=== PATIENT | male | born 1950 | race Caucasian/White ===

== ENCOUNTER 2025-05-01 10:46 | Emergency (ER) | payer MEDICAID, MEDICARE, OTHER ==
[~2025-05-01] VITALS: Ht 172.7 cm; Wt 64.9 kg
[2025-05-01 10:54] VITALS: TEMP 98.3
[2025-05-01] MEDS ORDERED: LIDOCAINE 2% JEL UROJET 10 ML MM ONE (11:13)
[2025-05-01 11:51] LABS: PLATELET COUNT (AUTO) 483 K/uL (150-450); RED BLOOD CELL COUNT(AUTO) 2.87 MIL/uL (4.5-6.0); RED CELL DISTRIBUTION WIDTH 13.8 % (11.5-15.0); WHITE BLOOD COUNT (AUTO) 17.1 K/uL (4.3-11.0)
[2025-05-01 11:56] LABS: CALCIUM, SERUM 9.6 mg/dL (8.5-10.1); CREATININE 1.8 mg/dL (0.6-1.3); SODIUM SERUM 146.0 mmol/L (136-145); UREA NITROGEN, BLOOD 44.0 mg/dL (7-18)
[2025-05-01 12:23] LABS: APPEARANCE,URINE SLIGHTLY CLOUDY (CLEAR); BLOOD, URINE 3+ Ery/uL (NEGATIVE); LEUKOCYTE ESTERASE ,URINE 2+ (NEGATIVE); NITRITE, URINE NEGATIVE (NEGATIVE); UGLUCOSE NEGATIVE (NEGATIVE)
[2025-05-01 12:27] LABS: ADD URINE CULTURE YES; SQUAMOUS EPITHELIAL CELL,UR Rare /HPF (None Seen)
[2025-05-01] MEDS ORDERED: CEFTRIAXONE 1GM BAG (ER ONLY) 50 ML IV ONE (12:38)
[2025-05-01] MEDS ORDERED: CEFP200T14 PO (12:55)
[2025-05-01] MEDS: CEFTRIAXONE 1GM BAG (ER ONLY) 1 GM/50 ML PIGGYBACK IV ONE (13:00)
[2025-05-01] MEDS: IV NS 0.9% 1,000 ML BAG IV ONE (13:08)
[2025-05-01 14:02] VITALS: BP 112/65; O2SAT 97
== END 2025-05-01 14:00 | disposition home or self-care (01) ==
LOC: ER 11:04
DX: N39.0 Urinary tract infection, site not specified (principal); R31.9 Hematuria, unspecified; N40.0 Benign prostatic hyperplasia without lower urinary tract symptoms
CPT/HCPCS: 99284; 96365; 51702; 85025; 80048; 87086; 81001; 36415; J3490; J0696